=== PATIENT | female | born 1940 | race Caucasian/White ===

== ENCOUNTER 2018-12-11 17:10 | Inpatient (IN) | payer MEDICARE ==
[~2018-12-11] VITALS: Ht 160 cm; Wt 52.2 kg
[2018-12-11] MEDS ORDERED: SODIUM CHLORIDE 0.9% 1,000 ML IVB ONE (17:43)
[2018-12-11 18:26] LABS: Basophils # (auto) 0.1 uL; Basophils % (auto) 0.4 % (0.0-2.0); Hematocrit 21.8 % (36.0-46.0); Mean Corpuscular Volume 75.8 fL (80.0-100.0); Red Blood Cells 2.87 10^6/uL (4.0-5.20)
[2018-12-11 18:28] LABS: Eosinophils # (auto) 0.1 uL; Eosinophils % (auto) 0.6 % (0.0-7.0); Lymphocytes # (auto) 1.1 uL; Lymphocytes % (auto) 6.5 % (10.0-50.0); Mean Corpuscular Hgb Conc. 30.3 g/dL (32.0-36.0); Monocytes # (auto) 1.1 uL; Monocytes % (auto) 6.3 % (0.0-12.0); Neutrophils % (auto) 86.2 % (37.0-80.0); Platelet Count (auto) 448 10^3/uL (140-450); White Blood Cell 17.4 10^3/uL (4.4-10.8)
[2018-12-11 18:29] LABS: Red Cell Distribution Width 22.8 % (11.8-14.3)
[2018-12-11 18:30] LABS: Hemoglobin 6.6 g/dL (12.2-16.2)
[2018-12-11 18:37] LABS: INR 1.23 (0.9-1.15); Partial Thromboplastin Time 27.6 sec (23.64-32.05)
[2018-12-11 18:46] LABS: Albumin 1.7 g/dL (3.4-5.0); BUN/Creatinine Ratio 31.3; Calcium 9.4 mg/dL (8.5-10.1); Magnesium 1.9 mg/dL (1.6-2.6); Potassium 3.5 mmol/L (3.5-5.1)
[2018-12-11 18:49] LABS: Bilirubin, Total 0.3 mg/dL (0.2-1.0); Lactic Acid w/Reflex 3.3 mmol/L (0.4-2.0)
[2018-12-11] MEDS ORDERED: cefTRIAXone 1GM/50ML D5W 50 ML IV ONE (19:30)
[2018-12-11] MEDS ORDERED: SODIUM CHLORIDE 0.9% 1,000 ML IV ONE ×2 (19:30)
[2018-12-11] MEDS ORDERED: MORPHINE SULF INJ 2 MG/ML SYRINGE 1ML IV PRN (20:45)
[2018-12-11] MEDS ORDERED: MORPHINE SULFATE 4 MG/ML SYR/VIAL IV PRN (20:45)
[2018-12-11] MEDS ORDERED: NITROGLYCERIN 0.4 MG SL TAB SL PRN (20:45)
[2018-12-11] MEDS ORDERED: VANCOMYCIN PER PHARMACY 1,000 MG IV SCH (20:45)
[2018-12-11] MEDS ORDERED: LEVOFLOXACIN 500MG 100 ML IV ONE (21:30)
[2018-12-11] MEDS ORDERED: VANCOMYCIN 1GM/250ML 250 ML IV ONE (22:00)
[2018-12-11] MEDS ORDERED: LEVOFLOXACIN 500MG 100 ML IV SCH (22:00)
[2018-12-11] MEDS: SODIUM CHLORIDE 0.9% 1,000 ML IV SCH (23:09)
[2018-12-12] VITALS (8 sets, daily range): BP systolic 120–145; BP diastolic 53–102
[2018-12-12] MEDS ORDERED: DexAMETHasone INJECTION 10 MG in SODIUM CHL 3% 500 ML IV SCH ×2
[2018-12-12] MEDS: SODIUM CHLORIDE 0.9% 1,000 ML IV SCH ×4 (01:00→23:41)
--- NOTE | 2018-12-12 01:00 | NUR ---
Admit to [facility] admitted to [facility] via [facility] monitor. Patient transferred to bed, connected to unit monitoring, noted to be afib in 160's, connected to oxygen, and weighed by bedscale. Patient oriented to Celia alcantara RN, unit, room, bed, and unit policies regarding patient care and visiting hours.Patient noted to be alert to name only. See interventions for complete physical assessment. Patient able to turn self in bed. All questions and concerns addressed, patient verbalized understanding.
[2018-12-12] MEDS: DexAMETHasone SOD PHOS 10MG/1ML VIAL INJ IV SCH ×5 (01:17→23:45)
--- NOTE | 2018-12-12 01:30 | NUR ---
HOSPITALIST PAGED DUE TO AFIB RVR NOTED TO BE HIGH 160'S
[2018-12-12] MEDS ORDERED: METOPROLOL TARTRATE 1MG/1ML-5ML VIAL IV ONE ×2 (01:45→01:57)
--- NOTE | 2018-12-12 01:50 | NUR ---
Barakat catheter insertion Patient assessed and determined to be in need of barakat catheter due to obstruction Order obtained from MD. Patient educated on catheter and reason for insertion. All questions answered. Barakat catheter 16 guage Indonesian inserted with clean sterile technique. Patient tolerated well.Dark liban urine noted.
--- NOTE | 2018-12-12 02:00 | NUR ---
SKIN/WOUND PATIENT PRESENTED TO ED WITH RIGHT BREAST OPEN WOUND/MASS: PER MD CA WITH METS PURULENT FOUL SMELLING ,GREEN , COPIOUS AMOUNT OF DRAINAGE FROM RIGHT BREAST, NOTED TO BE NECROTIC IN SOME AREAS:PICTURES TAKEN FOR REFERENCE AND WOUND CONSULT WILL BE PLACED. WOUND SWABBED FOR CULTURE AND SENT TO LAB.WOUND CLEANSED , AND CHUX PLACED UNDERNEATH.
--- NOTE | 2018-12-12 02:30 | NUR ---
0218 LOPRESSOR 25MG IV GIVEN TO AFIB RVR 130'S -160'S 0219 EKG STRIP SHOWS AFIB HR 98 BP 136/73 WILL CONTINUE TO MONITOR EFFECTIVENESS
--- NOTE | 2018-12-12 02:45 | NUR ---
BLOOD CONSENT PATIENT ALERT AND ORIENTED TO SELF ONLY PATIENT'S DAUGHTER EMANUEL SEXTON, IS UPDATED ON LOW HEMOGLOBIN LEVEL AND POSSIBLE NEED FOR BLOOD TRANSFUSION EMANUEL SIGNED CONSENT FOR BLOOD TRANSFUSION, WILL INFORM
--- NOTE | 2018-12-12 02:48 | NUR ---
CODE STATUS SPOKE WITH PATIENT'S DAUGHTER EMANUEL BRENNER REGARDING FC STATUS OF PATIENT PER EMANUEL BRENNER SHE WOULD LIKE PATIENT TO BE COMFORT MEASURES ONLY EMANUEL JORDIN WAS EXPLAINED IN DETAIL EMERGENCY RESUSCITATIVE MEASURES AND STATES SHE DOES NOT WANT ANY DNR SHEET PLACED IN HARD CHART AND EXPLAINED TO PATIENT'S DAUGHTER DNR SHEET NEEDS TO BE SIGNED BY MD BEFORE IT CAN TAKE EFFECT, SHE VERBALIZES UNDERSTANDING
--- NOTE | 2018-12-12 02:50 | NUR ---
HOSPITALIST PAGED FOR DIET,HGB LEVEL AND DAUGHTER'S CONSENT FOR BLOOD TRANSFUSION AND TO INFORM OF FAMILY'S DECISION TO MAKE PATIENT FULL DNR
--- NOTE | 2018-12-12 02:58 | NUR ---
SPOKE WITH DR. VALADEZ REGARDING CONSENT FROM DAUGHTER FOR BLOOD TRANSFUSION, PER DR VALADEZ AWAIT UNTIL DAY SHIFT DOCTOR ROUNDS ON PATIENT, NO BLOOD TRANSFUSION ORDERS GIVEN AT THIS TIME. NEW TELEPHONE ORDER READ BACK AND VERIFIED FOR DIET AND ORDER FOR ORAL PAIN MEDICATION PLACED
--- NOTE | 2018-12-12 03:45 | NUR ---
URINE SAMPLE COLLECTED AND SENT TO LAB VIA BULLET
[2018-12-12] MEDS ORDERED: LIDOCAINE VISCOUS 2% 15ML UD MT PRN (04:15)
[2018-12-12 04:34] LABS: Urine Amorphous Crystal FEW /hpf (None Seen); Urine Bacteria FEW /hpf (None Seen); Urine Blood Negative /uL (Negative); Urine Hyaline Cast MANY /lpf (0 - 2); Urine Mucus FEW (None Seen); Urine Specific Gravity 1.025 (1.001-1.035); Urine WBC 2 /hpf (0 - 5)
[2018-12-12] MEDS: METOPROLOL TARTRATE 1MG/1ML-5ML VIAL IV PRN ×2 (05:50→11:40)
[2018-12-12 06:08] LABS: Basophils # (auto) 0 uL; Basophils % (auto) 0.1 % (0.0-2.0); Eosinophils # (auto) 0 uL; Eosinophils % (auto) 0.1 % (0.0-7.0); Lymphocytes # (auto) 0.4 uL; Mean Corpuscular Hgb Conc. 29.9 g/dL (32.0-36.0); Monocytes # (auto) 0.1 uL; Monocytes % (auto) 0.9 % (0.0-12.0); Red Blood Cells 2.96 10^6/uL (4.0-5.20)
[2018-12-12 06:11] LABS: Hematocrit 22.3 % (36.0-46.0); Mean Corpuscular Hemoglobin 22.6 pg (28.0-32.0); Mean Corpuscular Volume 75.4 fL (80.0-100.0); Neutrophils # (auto) 13.2 uL; Neutrophils % (auto) 95.9 % (37.0-80.0); Platelet Count (auto) 406 10^3/uL (140-450); White Blood Cell 13.8 10^3/uL (4.4-10.8)
[2018-12-12 06:14] LABS: Hemoglobin 6.7 g/dL (12.2-16.2)
[2018-12-12 06:15] LABS: INR 1.17 (0.9-1.15); Partial Thromboplastin Time 29.6 sec (23.64-32.05)
[2018-12-12 06:33] LABS: Albumin 1.7 g/dL (3.4-5.0); BUN/Creatinine Ratio 33.3; Bilirubin, Total 0.3 mg/dL (0.2-1.0); Calcium 8.7 mg/dL (8.5-10.1); Magnesium 1.7 mg/dL (1.6-2.6); Phosphorus 2.7 mg/dL (2.5-4.90); Total Protein 6.1 g/dL (6.4-8.2)
--- NOTE | 2018-12-12 10:08 | NUR ---
MG PAGED PT NOTED AFIB 140-170'S. CURRENT BP 107/66. PATIENT AT THIS TIME ONLY ALERT AND ORIENTED X2, BUT STATING SHE DOES NOT WANT ANY THING DONE AND IS READY TO "". GRANDDAUGHTER ARRIVED AT BEDSIDE STATING PATIENT IS WISHING TO BE A DNR AND THEY WOULD LIKE TO RESPECT WISHES. FORM NOT SIGNED, DAUGHTER SALMA CASTELLANOS ON WAY. PAGED TO NOTIFY. PER MD PRN METOPROLOL TO BE HELD DUE TO BP. CARDIOLOGY CONSULT TO BE PLACED. AWARE OF WISHES OF DNR. MD STATING HE WILL BE IN SHORTLY. PT TO REMAIN FULL CODE UNTIL NOK ARRIVES.
--- NOTE | 2018-12-12 10:58 | NUR ---
CODE STATUS/MD DR. BESS AT BEDSIDE SPOKE TO DAUGHTER AND GRANDDAUGHTER AT BEDSIDE. PLAN OF CARE REVIEWED. PT CHANGED TO DNR STATUS.
[2018-12-12] MEDS ORDERED: FLEET ENEMA(ADULT) 135 ML PR ONE (11:00)
--- NOTE | 2018-12-12 11:00 | NUR ---
BLOOD TRANSFUSION REFUSED PATIENT CONTINUES TO REFUSED BLOOD TRANSFUSION. FAMILY AT BEDSIDE AWARE AND AGREED WITH PATIENTS DECISION AT THIS TIME.
--- NOTE | 2018-12-12 12:45 | NUR ---
NUTRITION PATIENT GIVEN PUREED DIET. PT FEED BY FAMILY AT BEDSIDE. PT ONLY TAKING MINIMAL BITES OF PUREED DIET. ASPIRATION PRECAUTIONS IN PLACE.
--- NOTE | 2018-12-12 13:00 | NUR ---
CONSTIPATION PATIENT COMPLAINING OF SEVERE CONSTIPATION. PT BELIEVES MEDIACATIONS WORSEN EVERY THING, OFFERED PATIENT PRUNE JUICE ALTERNATIVE, PT STATES IT CAUSES HER TO HAVE "SEVERE CRAMPS". PATIENT AGREED TO ENEMA. PT HAD A MODERATE- LARGE, SOFT FORMED BM WITH SLIGHT RELIEF.
[2018-12-12] MEDS: METOPROLOL TARTRATE 25 MG TAB PO SCH ×2 (14:30→23:41)
--- NOTE | 2018-12-12 14:30 | NUR ---
REPORT GIVEN TO TIFFANY CRUZ. UPDATED ON PLAN OF CARE. QUESTIONS AND CONCERNS ADDRESSED. PATIENT TO BE TRANSFERRED VIA BED ON TELE MONITOR.
--- NOTE | 2018-12-12 14:40 | NUR ---
PATIENT ARRIVED ON UNIT FROM [facility]. REPORT RECEIVED FROM BRADLEY CRUZ. PATIENT A/O x 3 HEART RATE 130 A-FIB. AWARE. COMFORT CART DELIVERED TO ROOM. PATIENT ACCOMPANIED BY DAUGHTER AND GRANDDAUGHTER. ADDRESSED ALL CONCERNS, EDUCATED REINFORCING STEEL WORKER WIRE MESH LIGHT. PATIENT WAS ABLE TO RETURN DEMONSTRATION. BED IN LOWEST LOCKED POSITION. DUMONT HUNG BELOW BLADDER. FREE OF KINKS. DRAINING. PATIENT HAD A BOWEL MOVEMENT. ZACH COTA ASSISTED THIS RN WITH CLEAN UP AND ASSESSMENT. PATIENT MADE COMFORTABLE. WILL CONTINUE TO MONITOR.
--- NOTE | 2018-12-12 16:00 | NUR ---
WOUND CARE NOTE: Wound care consult received from nursing. 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 Patient with history of anemia, breast cancer, hypertension, and cholecystectomy. Patient is alert and denies pain. Last Lalo score is 11. Patient refused treatment for the last 7 years and does not want any further treatment and she says "God will take care of her". Patient has been made DNR and plan is to have patient to be discharged on hospice tomorrow. Patient with a large fungating mass to left breast. Patient denies pain to area. Nursing trying best to manage drainage from wound. RECOMMENDATIONS: Dietary consult; turn q2hrs; Nursing to cleanse with wound cleanser, pat dry, lightly pack open area with dry kerlex, cover with kerlex and ABD pads, secure with medipore tape, change PRN saturation; wound care team to follow. Addendum: 12/12/18 at 1813 by URIAH CHAIREZ RN Amended: Links added.
[2018-12-12] MEDS ORDERED: MORPHINE SULF INJ 2 MG/ML SYRINGE 1ML IV PRN (16:15)
[2018-12-12] MEDS: LORazepam 2MG/ML-1ML VIAL IV PRN (17:20)
--- NOTE | 2018-12-12 17:20 | NUR ---
PATIENT EXPRESSED SHE HAS PAIN IN HER LEFT ARM, AND IN HER ABDOMEN 07/26. PATIENT REMOVED ALL HER BLANKETS, AND APPEARED ANXIOUS STATING, "THE HOSPITAL IS NOT A PLACE FOR ME." MEDICATED FOR PAIN AND ANXIETY ORDERED.
--- NOTE | 2018-12-12 18:15 | NUR ---
CLOSING SHIFT NOTE: PATIENT RESTING IN BED, EVEN AND UNLABORED RESPIRATIONS NOTED NO SIGNS OF DISTRESS. WOUND CARE PERFORMED. PATIENT TOLERATED WELL. IV PATENT AND RUNNING. DUMONT HUNG BELOW BLADDER. URINARY OUTPUT LESS THAN 30ML/HR. BED IN LOWEST LOCKED POSITION, CALL LIGHT WITHIN REACH, WILL ENDORSE CARE TO NOC RN.
--- NOTE | 2018-12-12 19:25 | NUR ---
CARE ENDORSED TO GABINO CRUZ.
--- NOTE | 2018-12-12 19:30 | NUR ---
Opening Shift Note Assumed care of patient, awake and alert. Family on bedside. No S/S of distress/SOB or pain. Instructed on POC and to call for assist PRN, will continue to monitor for changes Q1hr and PRN.
[2018-12-12] MEDS ORDERED: VANCOMYCIN 1GM/250ML 250 ML IV SCH (21:00)
[2018-12-12] MEDS ORDERED: LEVOFLOXACIN 250MG 50 ML IV SCH (23:00)
--- NOTE | 2018-12-13 01:15 | NUR ---
Critical lab result: Blood culture positive with Gram+ cocci in clusters. Hospitalist will be notified.
--- NOTE | 2018-12-13 02:00 | NUR ---
Paged hospitalist with the positive results of the blood culture.
--- NOTE | 2018-12-13 02:40 | NUR ---
Hospitalist call I informed him about the positive blood culture with Gram positive cocci in clusters and the antibiotics the patient already is on. He stated pt is covered.
[2018-12-13] MEDS: LORazepam 2MG/ML-1ML VIAL IV PRN ×2 (03:26→12:16)
[2018-12-13 04:36] VITALS: BP 139/77
[2018-12-13] MEDS: DexAMETHasone SOD PHOS 10MG/1ML VIAL INJ IV SCH ×2 (06:13→12:21)
[2018-12-13 06:27] LABS: Albumin 1.6 g/dL (3.4-5.0); BUN/Creatinine Ratio 34.9; Calcium 8.7 mg/dL (8.5-10.1); Potassium 3.5 mmol/L (3.5-5.1)
[2018-12-13 06:35] LABS: Bilirubin, Total 0.2 mg/dL (0.2-1.0); Total Protein 5.5 g/dL (6.4-8.2)
[2018-12-13] MEDS: SODIUM CHLORIDE 0.9% 1,000 ML IV SCH (07:05)
[2018-12-13 09:00] VITALS: BP 139/102
[2018-12-13] MEDS ORDERED: D5W/SOD CHLO 0.9% 1,000 ML IV SCH ×2 (09:00→10:00)
--- NOTE | 2018-12-13 09:00 | NUR ---
DR BESS ROUNDING ORDERS RECEIVED FOR D5 NS AT 150 RECEIVED WILL CARRY OUT.
--- NOTE | 2018-12-13 09:11 | NUR ---
Weekend service station attendant-I did not receive a page regarding the social service consult on this patient.
[2018-12-13] MEDS: METOPROLOL TARTRATE 25 MG TAB PO SCH (10:00)
[2018-12-13 10:30] VITALS: BP 130/96
--- NOTE | 2018-12-13 12:46 | NUR ---
Discharge planning per consult, patient has orders to dc on hospice. Daughter at bedside, presented with a choice letter that was signed in the presence of -[id number], and daughter chose [facility] Bikmtqk-[phone]. Referral faxed to [facility] placed a follow up call, spoke to Corina and was advised that they will have their nurse Blu come out to evaluated patient and sign consents with her daughter between 11:30-12, and that transportation was set up for parts picker via [place] between 2:30-3pm with [employer] [id number]-[phone]. Placed a follow up call to [facility], spoke with David and he confirmed transportation parts picker time. Nurse Honre was advised of dc plan. Addendum: 12/13/18 at 1253 by TERENCE ALMEIDA Amended: Links added.
--- NOTE | 2018-12-13 12:53 | NUR ---
Pt is a non communicative female , deteriorating female that resides with her daughter, Zuleyka, her primary caregiver. Per MD orders pt has been referred to hospice due to her terminal condition of breast cancer. Daughter states her own spouse was on hospice and passed two years ago. States she would like her mother to be evaluated by that same hospice which is [facility]. Choice letter provided and signed by daughter. Provided information regarding the hospice program and hospice agency contacted by extension course coordinator, Mami. Will be followed for completion of discharge plan. Addendum: 12/13/18 at 1257 by SABA KATZ Amended: Links added.
--- NOTE | 2018-12-13 12:57 | NUR ---
PER DR BESS PATIENT TO BE DISCHARGED WITH DUMONT IN PLACE.
[2018-12-13 13:00] VITALS: BP 153/103
--- NOTE | 2018-12-13 17:10 | NUR ---
Discharge instructions given as ordered. Encourage to follow up with PMD as instructed. All questions and concerns addressed. Patient verbalized understanding. Medication reconciliation form completed and copy given to patient. No Home medications held in Pharmacy and none to be returned to patient, and no needed vaccines given. IV removed with catheter intact, pressure dressing applied, barakat catheter kept in place per Dr Agrawal. Telemetry unit returned to ICU. Patient taken to vehicle [facility] with all personal belongings, accompanied by staff and family member. No distress noted at time of departure.
== END 2018-12-13 17:20 | disposition hospice, home (50) | DRG 871 ==
LOC: EDBD 17:10 → ER 17:10 → TELE 17:11 → DOU IN ICU 12-12 00:57 → TELE-EAST 12-12 16:00
PROVIDERS: ADMIT Hospitalist; ATTEND Family Medicine
DX: A41.9 Sepsis, unspecified organism (principal); G93.41 Metabolic encephalopathy; E46 Unspecified protein-calorie malnutrition; N63.10 Unspecified lump in the right breast, unspecified quadrant; D64.9 Anemia, unspecified; R62.7 Adult failure to thrive; I48.91 Unspecified atrial fibrillation; F03.90 Unspecified dementia, unspecified severity, without behavioral disturbance, psychotic disturbance, mood disturbance, and anxiety; C50.911 Malignant neoplasm of unspecified site of right female breast; E86.0 Dehydration; Z51.5 Encounter for palliative care; Z66 Do not resuscitate; Z53.20 Procedure and treatment not carried out because of patient's decision for unspecified reasons; Z88.0 Allergy status to penicillin; N61.0 Mastitis without abscess
CPT/HCPCS: 36415; 71045; 80053; 80061; 81001; 83036; 83605; 83735; 83880; 84100; 85025; 85610; 85730; 87040; 87077; 87186; 87205; 96361; 96365; 96367; G0378; J0696; J1100; J1956; J7042